=== PATIENT | female | born 1965 | race Caucasian/White ===

== ENCOUNTER 2024-06-18 12:47 | Inpatient (IN) | payer OTHER ==
[2024-06-18] MEDS ORDERED: HEPARIN SODIUM 1,000 UN/ML (10ML VL) IV PRN (13:10)
--- NOTE | 2024-06-18 13:17 | ED ---
General Adult HPI - General Chief complaint: Chest Pain Stated complaint: Chest pain Time Seen by Provider: 06/18/24 12:53 Source: patient, EMS, RN notes reviewed Mode of arrival: EMS Limitations: no limitations - History of Present Illness Initial comments: Patient is a 59-year-old female present to the emergency department with concerns with chest discomfort. Onset of symptoms was around 6 this morning. Discomfort feels like an ache. Discomfort was left arm and then went to the chest. Patient did have some mild sweating and mild shortness of breath. No nausea. Patient does have history of hypertension and is not on any medication for this. Patient did have a stent placed in 2014. Patient did go to [facility] and diagnosed with non-ST elevation myocardial infarction and transferred here for cardiac care. Patient is symptom-free at this time. - Related Data Previous Rx's Medication Instructions Recorded Aspirin 325 mg PO DAILY #30 tab 08/12/15 Atorvastatin [Lipitor] 80 mg PO HS #30 tab 08/12/15 Clopidogrel [Plavix] 75 mg PO DAILY #30 tab 08/12/15 Losartan [Cozaar] 50 mg PO DAILY #30 tab 08/12/15 Metoprolol Tartrate [Lopressor] 25 mg PO BID #60 tab 08/12/15 Nitroglycerin Sl Tabs [Nitrostat] 0.4 mg SUBLINGUAL Q5M PRN #25 tab 08/12/15 amLODIPine [Norvasc] 5 mg PO HS #30 tab 08/12/15 Allergies Allergy/AdvReac Type Severity Reaction Status Date / Time atorvastatin [From Lipitor] Allergy Rash/Hives Verified 06/18/24 12:57 meperidine HCl [From Demerol] AdvReac Hallucinati Verified 08/11/15 18:55 ons Review of Systems ROS Statement: Those systems with pertinent positive or pertinent negative responses have been documented in the HPI. ROS Other: All systems not noted in ROS Statement are negative. Constitutional: Denies: fever Eyes: Denies: eye pain ENT: Denies: ear pain Respiratory: Reports: as per HPI Cardiovascular: Reports: as per HPI, chest pain Musculoskeletal: Denies: back pain Past Medical History Past Medical History: Hyperlipidemia, Hypertension Additional Past Medical History / Comment(s): RECENT DX FOR HYPERTENSION AND HIGH CHOLESTEROL History of Any Multi-Drug Resistant Organisms: None Reported Past Surgical History: Tubal Ligation Additional Past Surgical History / Comment(s): 08-11-15 HEART CATH WITH STENT TO LAD. OTHER PAST MEDICAL HX: D/T DRIVE BY SHOOTING PT HAS PLATE IN RT WRIST AND SCREWS IN RT KNEE/FEMUR Past Anesthesia/Blood Transfusion Reactions: No Reported Reaction Additional Past Anesthesia/Blood Transfusion Reaction / Comment(s): CLAUSTERPHOBIA Past Psychological History: No Psychological Hx Reported Smoking Status: Current every day smoker Past Alcohol Use History: Occasional Past Drug Use History: None Reported - Past Family History Mother Additional Family Medical History / Comment(s): SLOW HEART RATE-PACEMAKER Father Additional Family Medical History / Comment(s): FROM LUNG DISEASE General Exam Limitations: no limitations General appearance: alert, in no apparent distress Head exam: Present: normocephalic Eye exam: Present: normal appearance Neck exam: Present: normal inspection Respiratory exam: Present: normal lung sounds bilaterally. Absent: chest wall tenderness Cardiovascular Exam: Present: regular rate, normal rhythm Expanded Peripheral pulses: 2+: Radial (R), Radial (L), Dorsalis Pedis (R), Dorsalis Pedis (L) GI/Abdominal exam: Present: soft. Absent: tenderness Extremities exam: Present: normal inspection. Absent: pedal edema, calf tenderness Neurological exam: Present: alert Psychiatric exam: Present: normal affect, normal mood Skin exam: Present: normal color Course Vital Signs 06/18/24 06/18/24 12:49 13:05 Temperature 98.2 F Pulse Rate 98 87 Respiratory 18 18 Rate Blood Pressure 192/120 192/120 O2 Sat by Pulse 98 98 Oximetry - Reevaluation(s) Reevaluation #1: 06/18/24 13:17 Cardiology and medicine have been paged 06/18/24 13:18 Case was discussed with Dr. Mancuso EKG Findings - EKG Results: EKG: interpreted by ERMD (Septal Q waves. Borderline ST change V2. T wave inversion leads V2 through V6.), sinus rhythm, normal axis Medical Decision Making - Medical Decision Making Was pt. sent in by a medical professional or institution (, PA, MAIL DELIVERER, urgent care, hospital, or residential...) When possible be specific @ -Patient was sent by [facility] Did you speak to anyone other than the patient for history (EMS, parent, family, police, friend...)? What history was obtained from this source @ -I did speak with transferring physician Did you review nursing and triage notes (agree or disagree)? Why? @ -I reviewed and agree with nursing and triage notes Were old charts reviewed (outside hosp., previous admission, EMS record, old EKG, old radiological studies, urgent care reports/EKG's, residential records)? Report findings @ -Previous admission reviewed. Chart review also reviewed from [facility]. Differential Diagnosis (chest pain, altered mental status, abdominal pain women, abdominal pain men, vaginal bleeding, weakness, fever, dyspnea, syncope, headache, dizziness, GI bleed, back pain, seizure, CVA, palpatations, mental health, musculoskeletal)? @ -Differential Chest Pain: Stable Angina, Unstable Angina, STEMI, NSTEMI Aortic Dissection, Pneumothorax, Musculoskeletal, Esophageal Spasm GERD, Cholecystitis, Pancreatitis, Zoster, this is not meant to be an all-inclusive list. EKG interpreted by me (3pts min.). @ -As above X-rays interpreted by me (1pt min.). @ -None done CT interpreted by me (1pt min.). @ -None done U/S interpreted by me (1pt. min.). @ -None done What testing was considered but not performed or refused? (CT, X-rays, U/S, labs)? Why? @ -None What meds were considered but not given or refused? Why? @ -None Did you discuss the management of the patient with other professionals (professionals i.e. , PA, MAIL DELIVERER, lab, RT, psych nurse, social media director, designer writer, teacher, airplane first officer, case folder)? Give summary @ -Case discussed with Dr. Mancuso who will evaluate patient. Case also discussed with Dr. Miller with [facility] who will admit covering hospital call Was smoking cessation discussed for >3mins.? @ -No Was critical care preformed (if so, how long)? @ -31 minutes critical care to Were there social determinants of health that impacted care today? How? (Homelessness, low income, unemployed, alcoholism, drug addiction, transportation, low edu. Level, literacy, decrease access to med. care, alf, rehab)? @ -No Was there de-escalation of care discussed even if they declined (Discuss DNR or withdrawal of care, Hospice)? DNR status @ -No What co-morbidities impacted this encounter? (DM, HTN, Smoking, COPD, CAD, Cancer, CVA, ARF, Chemo, Hep., AIDS, mental health diagnosis, sleep apnea, morbid obesity)? @ -None Was patient admitted / discharged? Hospital course, mention meds given and route, prescriptions, significant lab abnormalities, going to OR and other pertinent info. @ -Patient transferred for non-ST elevation [place]. Patient will be admitted with cardiac consult. Admission orders written. Heparin and nitroglycerin drips restarted. Beta-katie ordered. Undiagnosed new problem with uncertain prognosis? @ -No Drug Therapy requiring intensive monitoring for toxicity (Heparin, Nitro, Insulin, Cardizem)? @ -Heparin and nitroglycerin Were any procedures done? @ -No Diagnosis/symptom? @ -Non-ST elevation myocardial infarction Acute, or Chronic, or Acute on Chronic? @ -Acute Uncomplicated (without systemic symptoms) or Complicated (systemic symptoms)? @ -Default Side effects of treatment? @ -No Exacerbation, Progression, or Severe Exacerbation? @ -No Poses a threat to life or bodily function? How? (Chest pain, [place], [place], pneumonia, PE, COPD, DKA, ARF, appy, cholecystitis, CVA, Diverticulitis, Homicidal, Suicidal, threat to staff... and all critical care pts) @ -Threat to cardiac function Disposition Clinical Impression: Acute non-ST elevation myocardial infarction (NSTEMI) Disposition: ADMITTED IP TO THIS [facility] Condition: Serious Is patient prescribed a controlled substance at d/c from ED?: No Referrals: None,Stated [Primary Care Provider] - 1-2 days Time of Disposition: 13:27
[2024-06-18] MEDS ORDERED: NITROGLYCERIN SL TABS 0.4 MG TAB SUBLINGUAL PRN ×2 (13:22→13:39)
[2024-06-18] MEDS: HEPARIN SOD,PORK IN 0.45% NACL 25,000 UNIT in 0.45% NACL 1 250ML.BAG IV SCH (13:22)
[2024-06-18] MEDS: METOPROLOL TARTRATE 5 MG/5 ML VIAL IVP STA (13:27)
[2024-06-18] MEDS: NITROGLYCERIN-D5W PMX 50 MG in DEXTROSE/WATER 1 250ML.BAG IV ONE (13:39)
[2024-06-18] MEDS ORDERED: ALPRAZolam 0.25 MG TAB PO PRN (13:39)
[2024-06-18] MEDS ORDERED: ALPRAZolam 0.5 MG TAB PO PRN (13:39)
[2024-06-18] MEDS: ASPIRIN 325 MG TAB PO STA (13:46)
[2024-06-18] MEDS: ASPIRIN 81 MG PO STA (13:46)
[2024-06-18] MEDS: METOPROLOL TARTRATE 50 MG TAB PO SCH (13:46)
[2024-06-18] MEDS ORDERED: LIDOCAINE 1% INJ 10MG/ML (20 ML MDV) ONE (13:48)
[2024-06-18] MEDS ORDERED: VERAPAMIL 2.5 MG/ML 2 ML AMP ONE (13:48)
[2024-06-18] MEDS ORDERED: fentaNYL (PF) 50 MCG/ML 2 ML AMP ONE (13:49)
[2024-06-18] MEDS ORDERED: HEPARIN SODIUM 1,000 UN/ML (10ML VL) ONE (13:49)
[2024-06-18] MEDS: ATORVASTATIN 80 MG TAB PO STA (13:54)
--- NOTE | 2024-06-18 13:54 | P.CRDCN ---
History of Present Illness History of present illness: HISTORY OF PRESENT ILLNESS: This is a 59-year-old female with a past medical history significant for hypertension, hyperlipidemia, and coronary artery disease with previous stenting of the LAD. Patient does not follow with a flight surveyor. We have been asked to see the patient in consultation for non-STEMI. Patient examined at the bedside. Patient initially presented to [facility] with a chief complaint of chest pain. Patient states she woke up this morning and was having significant pain in her left arm that developed into pain in the middle of her chest. She also reports feeling short of breath. Patient was found to have elevated troponins. She was started on IV heparin and IV nitro and transferred to [facility] for further evaluation. Patient's blood pressure was found to be extremely elevated with a reading of 192/120. The patient states that she occasionally checks her blood pressure at home and her readings are usually elevated as well. She states that she is not taking any medications for the past several years. She states that she does not follow with a flight surveyor or primary care physician. She is a current cigarette smoker and smokes 1 pack of cigarettes every 2 to 3 days. DIAGNOSTICS: - EKG reveals sinus mechanism with deep T wave inversions in precordial leads - Chest xray performed at [facility] negative for acute process - Laboratory data: High-sensitivity troponin performed at outside facility 152 and 199. Creatinine 0.91. - Current home cardiac medications include none - Most recent echocardiogram obtained in July 2015 revealed ejection fraction 50 to 55% with mild TR and trace MR - Cardiac catheterization history: July 2015 revealing 70% mid LAD stenosis. EF 60%. Patient underwent stenting of the mid LAD with drug-eluting stent. REVIEW OF SYSTEMS: At the time of my exam: CONSTITUTIONAL: Denies fever or chills. HEENT: Denies blurred vision, vision changes, or eye pain. Denies hemoptysis CARDIOVASCULAR: Denies chest pain. Denies orthopnea. Denies PND. Denies palpitations RESPIRATORY: Denies shortness of breath. GASTROINTESTINAL: Denies abdominal pain. Denies nausea or vomiting. HEMATOLOGIC: Denies bleeding disorders. GENITOURINARY: Denies any blood in urine. SKIN: Denies pruitis. Denies rash. PHYSICAL EXAM: VITAL SIGNS: Reviewed. GENERAL: Well-developed in no acute distress. HEENT: Head is normocephalic. Pupils are equal, round. Sclerae anicteric. Mucous membranes of the mouth are moist. Neck supple. No JVD or thyromegaly LUNGS: Respirations even and unlabored. Lungs essentially clear to auscultation bilaterally. HEART: Regular rate and rhythm. S1 and S2 heard. ABDOMEN: Soft. Nondistended. Nontender. EXTREMITIES: Normal range of motion. No clubbing or cyanosis. Peripheral pulses intact. No lower extremity edema NEUROLOGIC: Awake and alert. Oriented x 3. ASSESSMENT: Non-STEMI Hypertensive emergency Coronary artery disease with previous stenting of the LAD Hyperlipidemia with allergy to statins Nicotine dependence Medication noncompliance PLAN: Obtain 2D echo to assess cardiac structure and function Continue IV heparin and IV nitro Add aspirin 81 mg daily Patient with allergy to statins. Begin Zetia 10 mg daily Add losartan-hydrochlorothiazide 50-25mg daily Continue metoprolol tartrate 50 mg twice a day started by ER Continue to monitor blood pressure Smoking cessation recommended. Patient to be referred to [place] quit line upon discharge Medication compliance reinforced with patient who verbalized understand and is agreeable Patient to undergo cardiac catheterization today with Dr. Kurtz Further recommendations pending patient course Nurse practitioner note has been reviewed by physician. Signing provider agrees with the documented findings, assessment, and plan of care documented by ENTRY MANAGER as a scribe. Past Medical History Past Medical History: Hyperlipidemia, Hypertension Additional Past Medical History / Comment(s): RECENT DX FOR HYPERTENSION AND HIGH CHOLESTEROL History of Any Multi-Drug Resistant Organisms: None Reported Past Surgical History: Tubal Ligation Additional Past Surgical History / Comment(s): 08-11-15 HEART CATH WITH STENT TO LAD. OTHER PAST MEDICAL HX: D/T DRIVE BY SHOOTING PT HAS PLATE IN RT WRIST AND SCREWS IN RT KNEE/FEMUR Past Anesthesia/Blood Transfusion Reactions: No Reported Reaction Additional Past Anesthesia/Blood Transfusion Reaction / Comment(s): CLAUSTERPHOBIA Past Psychological History: No Psychological Hx Reported Smoking Status: Current every day smoker Past Alcohol Use History: Occasional Past Drug Use History: None Reported - Past Family History Mother Additional Family Medical History / Comment(s): SLOW HEART RATE-PACEMAKER Father Additional Family Medical History / Comment(s): FROM LUNG DISEASE Medications and Allergies Home Medications Medication Instructions Recorded Confirmed Type No Known Home Medications 06/18/24 06/18/24 History Allergies Allergy/AdvReac Type Severity Reaction Status Date / Time atorvastatin [From Lipitor] Allergy Rash/Hives Verified 06/18/24 13:36 meperidine HCl [From Demerol] AdvReac Hallucinati Verified 06/18/24 13:36 ons Physical Exam Vitals: Vital Signs Temp Pulse Resp BP Pulse Ox 06/18/24 13:30 107 H 20 173/117 97 06/18/24 13:05 87 18 192/120 98 06/18/24 12:49 98.2 F 98 18 192/120 98 Intake and Output 06/17/24 06/18/24 06/18/24 22:59 06:59 14:59 Other: Weight 61.235 kg Results Current Medications Generic Name Dose Route Start Last Admin Trade Name Freq PRN Reason Stop Dose Admin Aspirin 325 mg 06/19/24 09:00 Aspirin 325 Mg Tab PO DAILY RICK Heparin Sodium (Porcine) 0 unit 06/18/24 13:10 Heparin Sodium 1,000 Un/Ml (10ml Vl) IV PER PROTOCOL PRN Low PTT Protocol Heparin Sodium/Sodium Chloride 250 mls @ 7.348 mls/hr 06/18/24 13:15 06/18/24 13:22 25,000 unit/ Sodium Chloride IV 12 units/kg/hr .Q24H RICK 7.348 mls/hr Administration Protocol 12 UNITS/KG/HR Nitroglycerin/Dextrose 50 mg/ 250 mls @ 1.5 mls/hr 06/18/24 13:10 IV Solution IV 06/19/24 13:09 .Q24H ONE Protocol 5 MCG/MIN Metoprolol Tartrate 50 mg 06/18/24 13:30 Metoprolol Tartrate 50 Mg Tab PO BID RICK Nitroglycerin 0.4 mg 06/18/24 13:22 Nitroglycerin Sl Tabs 0.4 Mg Tab SUBLINGUAL Q5M PRN Chest Pain Intake and Output 06/17/24 06/18/24 06/18/24 22:59 06:59 14:59 Other: Weight 61.235 kg Patient Weight 06/19/24 06:59 Weight 61.235 kg
[2024-06-18] MEDS: LOSARTAN 50 MG TAB PO SCH (13:55)
[2024-06-18] MEDS: MIDAZOLAM 2 MG/2 ML VIAL IVP ONE (14:15)
[2024-06-18] MEDS: LIDOCAINE 1% INJ 10MG/ML (20 ML MDV) SQ ONE (14:15)
[2024-06-18] MEDS: fentaNYL (PF) 50 MCG/1 ML VIAL IVP ONE ×3 (14:18→14:39)
[2024-06-18] MEDS ORDERED: TICAGRELOR 90 MG TAB ONE (14:25)
[2024-06-18] MEDS: TICAGRELOR 90 MG TAB PO ONE (14:25)
[2024-06-18] MEDS ORDERED: niCARdipine 25 MG/10 ML VIAL ONE (14:29)
[2024-06-18] MEDS: HEPARIN SODIUM 1,000 UN/ML (10ML VL) IVP ONE (14:30)
[2024-06-18] MEDS: SODIUM CHLORIDE 0.9% 250 ML IV ONE (14:40)
[2024-06-18] MEDS: HEPARIN SODIUM,PORCINE (1 ML) 2,500 UNIT in SODIUM CHLORIDE 0.9% 250 ML IRRIGATION ONE (14:40)
[2024-06-18] MEDS: HEPARIN SODIUM,PORCINE 10,000 UNIT in SODIUM CHLORIDE 0.9% 1,000 ML IRRIGATION ONE (14:40)
[2024-06-18] MEDS: IOPAMIDOL-300 100ML BTL INTRATHECA ONE (14:46)
[2024-06-18] MEDS ORDERED: ATROPINE SULFATE 0.1 MG/ML 10ML SYRINGE IV PRN (14:49)
[2024-06-18] MEDS ORDERED: RX INFO: IV CONTRAST WAS GIVEN 1 EACH MISC MISCELLANE PRN (14:49)
[2024-06-18] MEDS ORDERED: ZOLPIDEM 5 MG TAB PO PRN (14:49)
--- NOTE | 2024-06-18 16:13 | P.HPIM ---
History of Present Illness H&P Date: 06/18/24 History of Present Illness: Patient is a 59-year-old female transferred patient from [facility] with a past medical history of CAD with stent (2014), hyperlipidemia, hypertension presents to the ED with chest pain. She explains while at work this morning she felt discomfort in her left arm which then radiated to her chest. She felt numbness and tingling in her left arm as well. Admits to diaphoresis and shortness of breath. Denies nausea, vomiting. Has extensive tobacco use history. Does not take any home medications. She went to [facility] to be assessed for chest pain. Labs and other evaluation showed that she had a NSTEMI and was transferred here for cardiac care. She was seen status post cardiac catheterization. She presents with no symptoms. She is being admitted for further monitoring status post cardiac catheterization. Pertinent positives and negatives as discussed above, a complete review of systems was performed and all other systems are negative. Vitals: Signs Reviewed Physical Exam: General: nontoxic, no distress, appears at stated age Derm: warm, dry, intact Head: atraumatic, normocephalic, symmetric Eyes: EOMI, no lid lag, anicteric sclera Mouth: no lip lesion, mucus membranes moist Cardiovascular: S1 S2 reg, no murmur, rubs, or gallops Lungs: CTA bilateral, no rhonchi, no rales, no accessory muscle use Abdominal: soft, non-tender to palpataion, no appreciable organomegaly Extremities: no gross muscle atrophy, no edema, no contractures Neuro: Alert, Oriented, CNII-XII grossly intact, gait normal Psych: well appearing, appropriate affect Assessment and Plan: 59 year-old female with past medical history of hypertension, hyperlipidemia, CAD with stent presents with chest pain status post cardiac catheterization secondary to NSTEMI. Active: NSTEMI Hypertension Hyperlipidemia History of CAD with stent in LAD Status post cardiac catheterization On aspirin 81 p.o. daily Oxygen nasal cannula 2 L Continue IV heparin Continue IV nitro Losartan-Hydrochlorothiazide 50-25 mg p.o. daily Metoprolol tartrate day 50 mg p.o. twice daily Nitroglycerin sublingual tabs as needed for chest pain Atropine sulfate 0.5 mg IV once as needed for symptomatic bradycardia Ticagrelor 90 mg p.o. twice daily Patient is allergic to statins. Begin Zetia 10 mg daily Echo Doppler ordered A1c, lipid panel, coagulation studies, troponins, CMP and BMP pending. Repeat EKG tomorrow. Telemetry monitoring Monitor blood pressure Cardiology following. Note reviewed. Rehab consult, dietitian consulted. Chronic: Anxiety Xanax 0.25 mg p.o. every 6 hours for mild to moderate anxiety Insomnia Ambien 5 mg p.o. at bedtime as needed Nicotine dependence Medication noncompliance Educated on smoking cessation and medical noncompliance. F: NS @ 75cc/hr E: Replete as needed N: Heart healthy diet A: Ambulatory GI PPx: Maalox DVT ppx: IV heparin Code status: Full Anticipated discharge place: Home Anticipated discharge time: Likely 24-48 hours I have seen and evaluated the patient today. Discussed with the resident and agree with the residents subjective and objective as documented in the resident's note. The assessment and plan was discussed and outlined as below. Patient underwent LAD stent. Chest pain free. No complaints. Currently on ASA, Lipitor, Brilinta, Metoprolol. She does not take any medications at home and is a heavy smoker. NSTEMI: Status post cath and LAD stent. ASA 81 mg PO QD. Lipitor 80 mg PO QD. Metoprolol 50 mg PO BID. Brilinta 90 mg PO BID. Echo pending. Telemetry monitoring. Cardiology on board. Hypertensive emergency: Metoprolol as above. Losartan 50 mg PO QD. HCTZ 25 mg PO QD. Monitor vitals and adjust medications if necessary. Nicotine abuse: Advised to quit. Past Medical History Past Medical History: Hyperlipidemia, Hypertension Additional Past Medical History / Comment(s): RECENT DX FOR HYPERTENSION AND HIGH CHOLESTEROL History of Any Multi-Drug Resistant Organisms: None Reported Past Surgical History: Tubal Ligation Additional Past Surgical History / Comment(s): 08-11-15 HEART CATH WITH STENT TO LAD. OTHER PAST MEDICAL HX: D/T DRIVE BY SHOOTING PT HAS PLATE IN RT WRIST AND SCREWS IN RT KNEE/FEMUR Past Anesthesia/Blood Transfusion Reactions: No Reported Reaction Additional Past Anesthesia/Blood Transfusion Reaction / Comment(s): CLAUSTERPHOBIA Past Psychological History: No Psychological Hx Reported Smoking Status: Current every day smoker Past Alcohol Use History: Occasional Past Drug Use History: None Reported - Past Family History Mother Additional Family Medical History / Comment(s): SLOW HEART RATE-PACEMAKER Father Additional Family Medical History / Comment(s): FROM LUNG DISEASE Medications and Allergies Home Medications Medication Instructions Recorded Confirmed Type No Known Home Medications 06/18/24 06/18/24 History Allergies Allergy/AdvReac Type Severity Reaction Status Date / Time atorvastatin [From Lipitor] Allergy Rash/Hives Verified 06/18/24 13:36 meperidine HCl [From Demerol] AdvReac Hallucinati Verified 06/18/24 13:36 ons Physical Exam Vitals: Vital Signs Temp Pulse Resp BP Pulse Ox 06/18/24 13:48 82 18 172/118 97 06/18/24 13:30 107 H 20 173/117 97 06/18/24 13:05 87 18 192/120 98 06/18/24 12:49 98.2 F 98 18 192/120 98 Intake and Output 06/18/24 06/18/24 06/18/24 06:59 14:59 22:59 Intake Total 40 Balance 40 Intake: IV 40 Other: Weight 61.235 kg
[2024-06-18] MEDS: hydroCHLOROthiazide 25 MG TAB PO SCH (16:14)
[2024-06-18] MEDS: SODIUM CHLORIDE 0.9% 1,000 ML in EMPTY BAG 1 BAG IV SCH (16:15)
[2024-06-18] MEDS: LABETALOL 5 MG/ML VIAL MDV IVP STA (18:29)
[2024-06-18] MEDS: MAG HYDROX/AL HYDROX/SIMETH 30 ML CUP PO PRN (18:33)
[2024-06-18] MEDS: NITROGLYCERIN-D5W PMX 50 MG in DEXTROSE/WATER 1 250ML.BAG IV SCH ×2 (18:56→21:28)
[2024-06-18] MEDS: hydrALAZINE HCL 20 MG/ML 1 ML VIAL IVP STA (19:55)
[2024-06-18] MEDS: ONDANSETRON 4 MG/2 ML VIAL IVP PRN (19:56)
[2024-06-18 21:49] LABS: Glucose,Whole Blood 127 mg/dL (70-110)
[2024-06-18] MEDS ORDERED: NALOXONE 0.4 MG/ML 1 ML VIAL IV PRN (21:59)
[2024-06-18] MEDS: METOCLOPRAMIDE 5 MG/ML 2 ML VIAL IVP PRN (22:20)
[2024-06-18 22:35] LABS: Basophils % (A) 0 %; Eosinophils # (A) 0.2 k/uL (0-0.7); Eosinophils % (A) 2 %; HCT 48.1 % (34.0-46.0); Lymphocytes # (A) 1.7 k/uL (1.0-4.8); Lymphocytes % (A) 12 %; MCH 31.6 pg (25.0-35.0); MCHC 33.3 g/dL (31.0-37.0); MCV 94.9 fL (80.0-100.0); Monocytes # (A) 0.7 k/uL (0-1.0); Monocytes % (A) 5 %; Neutrophils # (A) 11.3 k/uL (1.3-7.7); Neutrophils % (A) 80 %; Platelet Count 324 k/uL (150-450); RBC 5.07 m/uL (3.80-5.40); RDW 13.2 % (11.5-15.5)
[2024-06-18] MEDS: CLEVIDIPINE BUTYRATE 25 MG in EMPTY BAG 1 BAG IV SCH (22:48)
[2024-06-18 22:49] LABS: African American GFR (CKD) >90 (>60 ml/min/1.73 sqM); Blood Urea Nitrogen 12 mg/dL (7-17); Carbon Dioxide 20 mmol/L (22-30); Non-African American GFR(CKD) >90 (>60 ml/min/1.73 sqM)
[2024-06-18] MEDS: TICAGRELOR 90 MG TAB PO SCH (23:10)
[2024-06-18] MEDS: SPIRONOLACTONE 25 MG TAB PO SCH (23:10)
[2024-06-18 23:23] LABS: Anion Gap 8 mmol/L; Calcium 9.6 mg/dL (8.4-10.2); Chloride 104 mmol/L (98-107); Glucose 135 mg/dL (74-99); Magnesium 1.9 mg/dL (1.6-2.3); Potassium 3.8 mmol/L (3.5-5.1); Sodium 132 mmol/L (137-145)
[2024-06-19] MEDS ORDERED: Magnesium Replacement Protocol 1 EACH MISC MISCELLANE PRN (03:40)
[2024-06-19] MEDS ORDERED: Potassium Replacement Protocol 1 EACH MISC MISCELLANE PRN (03:40)
[2024-06-19] MEDS: MAGNESIUM SULFATE-D5W PMX 1 GM in DEXTROSE/WATER 1 100ML.BAG IVPB ONE (03:49)
[2024-06-19] MEDS: POTASSIUM CHLORIDE ER 20 MEQ TAB.ER PO SCH ×2 (03:49→10:01)
[2024-06-19 05:08] LABS: Basophils % (A) 0 %; Eosinophils # (A) 0.1 k/uL (0-0.7); Eosinophils % (A) 1 %; HCT 49.4 % (34.0-46.0); HGB 16.1 gm/dL (11.4-16.0); Lymphocytes # (A) 2.1 k/uL (1.0-4.8); Lymphocytes % (A) 20 %; MCH 30.9 pg (25.0-35.0); MCHC 32.5 g/dL (31.0-37.0); MCV 95.1 fL (80.0-100.0); Mean Platelet Volume 7.5; Monocytes # (A) 0.6 k/uL (0-1.0); Monocytes % (A) 6 %; Neutrophils # (A) 7.7 k/uL (1.3-7.7); Neutrophils % (A) 72 %; Platelet Count 312 k/uL (150-450); RDW 12.7 % (11.5-15.5); WBC 10.8 k/uL (3.8-10.6)
[2024-06-19 05:24] LABS: African American GFR (CKD) >90 (>60 ml/min/1.73 sqM); Anion Gap 9 mmol/L; Blood Urea Nitrogen 10 mg/dL (7-17); Calcium 9.8 mg/dL (8.4-10.2); Carbon Dioxide 21 mmol/L (22-30); Chloride 107 mmol/L (98-107); Glucose 116 mg/dL (74-99); Non-African American GFR(CKD) >90 (>60 ml/min/1.73 sqM); Potassium 3.9 mmol/L (3.5-5.1); Sodium 137 mmol/L (137-145)
[2024-06-19 05:35] LABS: Prothrombin Time 10.6 sec (10.0-12.5)
[2024-06-19] MEDS ORDERED: HEPARIN SODIUM,PORCINE 10,000 UNIT in SODIUM CHLORIDE 0.9% 1,000 ML IRRIGATION PRN (07:00)
[2024-06-19] MEDS ORDERED: HEPARIN SODIUM,PORCINE (1 ML) 2,500 UNIT in SODIUM CHLORIDE 0.9% 250 ML IRRIGATION PRN (07:00)
[2024-06-19] MEDS: ENOXAPARIN 40 MG/0.4 ML SYRINGE SQ SCH (08:31)
[2024-06-19] MEDS: ASPIRIN 81 MG PO SCH (08:31)
--- NOTE | 2024-06-19 08:58 | P.PN ---
Subjective Progress Note Date: 06/19/24 This is a 59-year-old female patient with a past medical history significant for CAD with prior stenting of the LAD as well as hypertension and dyslipidemia and smoking who was admitted to the hospital with acute non-ST ovation myocardial infarction and underwent a heart catheterization which revealed critical LAD disease which was stented. The echo still pending. June 19, 2024 The patient was seen and evaluated this morning. She is asymptomatic and hemodynamically stable. The pressure is better and currently she is off clevidipine. The pressure consistent with stage II hypertension and going to increase the dose of losartan to 100 mg p.o. daily and continue rest of the current medical regimen including dual antiplatelet therapy along with high intensity statin. The examination is remarkable for regular rhythm with a soft systolic murmur and clear breathing sounds bilaterally and no carotid bruit and no edema was noted Assessment Acute non-ST ovation myocardial infarction Status post PCI of the LAD Multiple comorbid conditions including hypertension and dyslipidemia and smoking Plan Continue the current medical regimen Increase dose of losartan Follow-up on the echocardiogram The patient can be transferred to [facility]. Objective - Vital Signs Vital signs: Vital Signs Temp 96.4 F L 06/19/24 08:00 Pulse 73 06/19/24 08:00 Resp 19 06/19/24 08:00 BP 133/95 06/19/24 08:00 Pulse Ox 96 06/19/24 08:00 FiO2 Intake & Output 06/18/24 06/19/24 06/19/24 18:59 06:59 18:59 Intake Total 580 641.958 120.4 Output Total 2300 800 Balance 580 -1658.042 -679.6 Weight 61.235 kg 65.7 kg Intake: IV 40 600 95 Sodium Chloride 0.9% 1, 600 95 000 ml In Empty Bag 1 bag @ 75 mls/hr IV .[id number] RICK Rx#:[id number] Intake, IV Titration 41.958 25.4 Amount Clevidipine Butyrate 25 37.433 25.4 mg In Empty Bag 1 bag @ 1 MG/HR 2 mls/hr IV .Q24H RICK Rx#:[id number] Nitroglycerin-D5w Pmx 50 4.525 mg In Dextrose/Water 1 250ml.bag @ 5 MCG/MIN 1.5 mls/hr IV .Q24H RICK Rx#: [id number] Oral 540 Output: Urine 2300 800 Other: Voiding Method Toilet Toilet # Voids 1 - Labs CBC & Chem 7: 06/19/24 04:54 06/19/24 04:54 Labs: Abnormal Lab Results - Last 24 Hours (Table) 06/18/24 06/18/24 06/18/24 Range/Units 17:04 20:22 21:48 WBC (3.8-10.6) k/uL Hgb (11.4-16.0) gm/dL Hct (34.0-46.0) % Neutrophils # (1.3-7.7) k/uL Sodium (137-145) mmol/L Carbon Dioxide (22-30) mmol/L Glucose (74-99) mg/dL POC Glucose (mg/dL) 127 H (70-110) mg/dL Troponin I 2.340 H* 1.590 H* (0.000-0.034) ng/mL 06/18/24 06/18/24 06/19/24 Range/Units 22:25 22:25 04:54 WBC 14.0 H 10.8 H (3.8-10.6) k/uL Hgb 16.1 H (11.4-16.0) gm/dL Hct 48.1 H 49.4 H (34.0-46.0) % Neutrophils # 11.3 H (1.3-7.7) k/uL Sodium 132 L (137-145) mmol/L Carbon Dioxide 20 L (22-30) mmol/L Glucose 135 H (74-99) mg/dL POC Glucose (mg/dL) (70-110) mg/dL Troponin I (0.000-0.034) ng/mL 06/19/24 Range/Units 04:54 WBC (3.8-10.6) k/uL Hgb (11.4-16.0) gm/dL Hct (34.0-46.0) % Neutrophils # (1.3-7.7) k/uL Sodium (137-145) mmol/L Carbon Dioxide 21 L (22-30) mmol/L Glucose 116 H (74-99) mg/dL POC Glucose (mg/dL) (70-110) mg/dL Troponin I (0.000-0.034) ng/mL
[2024-06-19] MEDS ORDERED: ASPIRIN 325 MG TAB PO SCH (09:00)
[2024-06-19] MEDS: LOSARTAN 50 MG TAB PO STA (10:01)
[2024-06-19 10:28] LABS: Chol/HDL Ratio 3.29 Ratio; LDL Cholesterol,Calculated 145.6 mg/dL (0.0-131.0)
--- NOTE | 2024-06-19 11:04 | P.PN ---
Subjective Progress Note Date: 06/19/24 Patient is a 59 year old F with PMH of HTN, HLD, CAD with previous LAD stent in 2014 presented to the ED at [facility] as a transfer from [facility] for chest pain. She reports heavy history of smoking and not taking any medications. High-sensitivity troponin performed at [facility] was 152 and 199. EKG reveals sinus rhythm with deep T wave inversions in V2-V6. Of note, underwent cardiac cath at this hospital in 07/2015 revealing 70% mid LAD stenosis status post JORDY to the mid-LAD. Echo done at that time showed EF 50-55%. She was noted to be extremely hypertensive and was started on a heparin infusion for NSTEMI and nitro drip and transferred to [facility] for further evaluati on. In the ED here, her vitals were BP 192/120, HR 98, T 98.2F, RR 18, 98% on RA. She was given Metoprolol 5 mg IV in the ED and evaluated by Cardiology. She underwent cardiac cath on 06/18 and underwent stenting to the LAD. Post cath, her BP remained elevated with SBP in the 200s. She was given 10 mg IV Labetolol and eventually required a Clevedipine drip hence transferred to the ICU. 06/19 Patient was seen and examined. No complaints. Most recent BP 134/94 HR 78. Currently on Clevedipine drip running at 3 mg/hr. CBC, Coag panel, CMP done today significant for WBC 10.8, Hg 16.1, Hct 49.4, bicarb 21, glu 116. Troponins post cath trending down 2.34 and 1.59. A1c 5.6. Lipid panel T. Chol 236, LDL 145.6. General: non toxic, no distress, appears at stated age Derm: warm, dry Head: atraumatic, normocephalic, symmetric Eyes: EOMI, no lid lag, anicteric sclera Mouth: no lip lesion, mucus membranes moist Cardiovascular: S1S2 reg, no murmur Lungs: CTA bilateral, no rhonchi, no rales , no accessory muscle use Ext: no gross muscle atrophy, no edema, no contractures Neuro: no focal neuro deficits Psych: Alert, oriented, appropriate affect Based on my assessment of this patient, this patient meets a high complexity level of care. NSTEMI: Status post cath and LAD stent. ASA 81 mg PO QD. Metoprolol 50 mg PO BID. Brilinta 90 mg PO BID. Echo pending. Telemetry monitoring. Cardiology on board. Hypertensive emergency: Clevedipine drip at 3 mg/hr. Metoprolol as above. Losartan increased to 200 mg PO QD. HCTZ 25 mg PO QD. Aldactone 25 mg PO QD. Monitor vitals and adjust medications if necessary. Dyslipidemia: Allergic to statin? Polycythemia likely related to history of smoking Leukocytosis mildly elevated and trending down, likely reactive with no signs of active infection. Nicotine abuse: Advised to quit. CODE STATUS: FULL CODE DVT Prophylaxis: Lovenox SQ GI Prophylaxis: Designated medical POA if patient is not able to make medical decisions for themselves: I have reviewed the following systems security consultant notes: Cardiology, Cath note. I have reviewed the results of the following tests: CBC, CMP, Coag panel, Troponin x 2 I have ordered the following tests: Echo is pending. I have discussed the care of this patient with the following independent historian: I have independently interpreted the following test below: I have discussed the management of this patient with the following physician: This patient has a high risk of morbidity due to the following reasons: Patient requires IV antihypertensive medication for BP control which requires intensive monitoring of hemodynamics. Objective - Vital Signs Vital signs: Vital Signs Temp 98.2 F 06/19/24 04:00 Pulse 78 06/19/24 07:00 Resp 16 06/19/24 07:00 BP 134/94 06/19/24 07:00 Pulse Ox 96 06/19/24 07:00 FiO2 Intake & Output 06/18/24 06/19/24 06/19/24 18:59 06:59 18:59 Intake Total 580 491.958 Output Total 2300 Balance 580 -1808.042 Weight 61.235 kg 65.7 kg Intake: IV 40 450 Sodium Chloride 0.9% 1, 450 000 ml In Empty Bag 1 bag @ 75 mls/hr IV .[id number] [facility] Rx#:[id number] Intake, IV Titration 41.958 Amount Clevidipine Butyrate 25 37.433 mg In Empty Bag 1 bag @ 1 MG/HR 2 mls/hr IV .Q24H [facility] Rx#:[id number] Nitroglycerin-D5w Pmx 50 4.525 mg In Dextrose/Water 1 250ml.bag @ 5 MCG/MIN 1.5 mls/hr IV .Q24H [facility] Rx#: [id number] Oral 540 Output: Urine 2300 Other: Voiding Method Toilet - Labs CBC & Chem 7: 06/19/24 04:54 06/19/24 04:54 Labs: Abnormal Lab Results - Last 24 Hours (Table) 06/18/24 06/18/24 06/18/24 Range/Units 17:04 20:22 21:48 WBC (3.8-10.6) k/uL Hgb (11.4-16.0) gm/dL Hct (34.0-46.0) % Neutrophils # (1.3-7.7) k/uL Sodium (137-145) mmol/L Carbon Dioxide (22-30) mmol/L Glucose (74-99) mg/dL POC Glucose (mg/dL) 127 H (70-110) mg/dL Troponin I 2.340 H* 1.590 H* (0.000-0.034) ng/mL 06/18/24 06/18/24 06/19/24 Range/Units 22:25 22:25 04:54 WBC 14.0 H 10.8 H (3.8-10.6) k/uL Hgb 16.1 H (11.4-16.0) gm/dL Hct 48.1 H 49.4 H (34.0-46.0) % Neutrophils # 11.3 H (1.3-7.7) k/uL Sodium 132 L (137-145) mmol/L Carbon Dioxide 20 L (22-30) mmol/L Glucose 135 H (74-99) mg/dL POC Glucose (mg/dL) (70-110) mg/dL Troponin I (0.000-0.034) ng/mL 06/19/24 Range/Units 04:54 WBC (3.8-10.6) k/uL Hgb (11.4-16.0) gm/dL Hct (34.0-46.0) % Neutrophils # (1.3-7.7) k/uL Sodium (137-145) mmol/L Carbon Dioxide 21 L (22-30) mmol/L Glucose 116 H (74-99) mg/dL POC Glucose (mg/dL) (70-110) mg/dL Troponin I (0.000-0.034) ng/mL
[2024-06-19 12:01] VITALS: BMI 22.6
--- NOTE | 2024-06-19 13:38 | CA ---
Transthoracic Echo Report Name: Carmen Cole Age: 59 Gender: F : 1965 Exam Date: 06/19/2024 08:12 Exam Location: [facility] Echo Ht (in): 67 Wt (lb): 135 Ordering Physician: Maria C Burris Attending/Referring Phys: [id number], [place] Mandrel Press Hand Christine Holbrook RDCS Procedure CPT: Indications: nstemi Cardiac Hx: stents Technical Quality: Fair Contrast 1: Total Dose (mL): Contrast 2: Total Dose (mL): MEASUREMENTS (Male / Female) Normal Values 2D ECHO LV Diastolic Diameter PLAX 4.8 cm 4.2 - 5.9 / 3.9 - 5.3 cm LV Systolic Diameter PLAX 3.6 cm IVS Diastolic Thickness 1.4 cm 0.6 - 1.0 / 0.6 - 0.9 cm LVPW Diastolic Thickness 1.3 cm 0.6 - 1.0 / 0.6 - 0.9 cm LV Relative Wall Thickness 0.6 RV Internal Dim ED PLAX 2.9 cm LA Systolic Diameter LX 3.4 cm 3.0 - 4.0 / 2.7 - 3.8 cm LV Diastolic Volume MOD BP 60.9 cm??? 67 - 155 / 56 - 104 cm??? LV Systolic Volume MOD BP 33.5 cm??? - 58 / 19 - 49 cm??? LV Ejection Fraction MOD BP 44.9 % >= 55 % LV Cardiac Index MOD BP 1543.2 cm???/min???m??? LV Diastolic Volume MOD 4C 54.8 cm??? LV Systolic Volume MOD 4C 28.6 cm??? LV Ejection Fraction MOD 4C 47.7 % LV Cardiac Index MOD 4C 1477.1 cm???/min???m??? LV Diastolic Length 4C 6.0 cm LV Systolic Length 4C 6.0 cm LV Diastolic Volume MOD 2C 67.0 cm??? LV Systolic Volume MOD 2C 38.5 cm??? LV Ejection Fraction MOD 2C 42.6 % LV Cardiac Index MOD 2C 1609.8 cm???/min???m??? LV Diastolic Length 2C 6.1 cm LV Systolic Length 2C 6.3 cm LA Volume 30.7 cm??? 18 - 58 / 22 - 52 cm??? LA Volume Index 18.1 cm???/m??? 16 - 28 cm???/m??? DOPPLER AV Peak Velocity 107.6 cm/s AV Peak Gradient 4.6 mmHg MV Area PHT 3.8 cm??? Mitral E Point Velocity 36.6 cm/s Mitral A Point Velocity 69.8 cm/s Mitral E to A Ratio 0.5 MV Deceleration Time 198.5 ms FINDINGS Left Ventricle Left ventricular ejection fraction is estimated at 40-45 %. Left ventricular cavity size normal. Moderate concentric left ventricular hypertrophy. Apical anterior wall hypokinesis, apical inferior hypokinesis, apical septum hypokinesis Right Ventricle Normal right ventricular size. Unable to estimate the right ventricular systolic pressure. Right Atrium Normal right atrial size. No right atrial thrombus or mass seen. Left Atrium Normal left atrial size. No left atrial thrombus or mass present. Mitral Valve Structurally normal mitral valve. No mitral stenosis, regurgitation or prolapse. Aortic Valve Trileaflet aortic valve. No aortic valve stenosis or regurgitation. Tricuspid Valve Structurally normal tricuspid valve. No tricuspid stenosis, regurgitation or prolapse. Pulmonic Valve Pulmonic valve not well visualized. Pericardium No pericardial effusion. No pleural effusion. Aorta Normal size aortic root and proximal ascending aorta. CONCLUSIONS Mildly impaired LV function with EF between 40 to 45% with mid ventricle and apical hypokinesia Previewed by: Dr. Kennedy Kurtz MD (Electronically Signed) Final Date: 19 June 2024 13:37
--- NOTE | 2024-06-19 13:52 | P.PCN ---
Date of Procedure: 06/18/24 Operative Findings: CARDIAC CATHETERIZATION AND PERCUTANEOUS CORONARY INTERVENTION PERFORMING PHYSICIAN: Kennedy Kurtz MD, RPVI PROCEDURE PERFORMED: 1. Selective right and left coronary angiogram 2. Left heart catheterization 3. Successful stenting of the mid LAD using 3.25 x 15 mm Xience JORDY with an excellent angiographic results with adjunctive use of IVUS 4. Ultrasound guided access of the right radial artery INDICATION: Acute coronary syndrome COMPLICATION: None APPROACH: Right radial art LEVEL OF SEDATION: Moderate with the sedation time off 38 minutes PROCEDURE DESCRIPTION: The after obtaining informed consent the patient was brought to the cardiac Rn Midwife. The right radial artery was cannulated using micropuncture technique under ultrasound guidance the micropuncture wire passed easily then I placed a 6 Bangladeshi 11 cm sheath. After that anticoagulation was initiated using heparin with continuous ACT monitoring. Selective right and left coronary angiogram performed using JR4 and JL 3.5 catheters. Left heart catheterization was performed as well and the procedure after that was completed with no complication as a diagnostic procedure. Subsequently I decided to intervene on the LAD. Anticoagulation continued using heparin with ACT monitoring. Subsequently I did engage the left main using JL 3.5 guiding catheter. I did wired the LAD using a run-through wire. Intravascular ultrasound was performed and showed a diameter around 3 to 3.5 mm. I did predilated using 2.5 mm balloon before I deployed 3.25 x 15 mm stent where the stent was positioned under fluoroscopy guidance and deployed and subsequently postdilated using 3.0 noncompliant balloon with final angiogram showing excellent angiographic results and the procedure was completed with no complication SELECTIVE CORONARY ANGIOGRAM: The right coronary artery: Large-caliber vessel and a dominant vessel and appears to be angiographically Left main: Is angiographically normal. Bifurcates into an LCx and LAD The left circumflex: The large-caliber vessel nondominant vessel with mild disease on The left anterior descending artery: Large-caliber vessel stented in the midportion and there is a critical disease just distal to the stented segment appears to be in the range of 99.9% HEMODYNAMICS: The LVEDP was 18 mmHg with no significant gradient across aortic valve CONCLUSION: Critical disease involving the mid LAD. I performed successful PCI as described above POSTPROCEDURE MANAGEMENT: 1. Dual antiplatelet therapy using aspirin and present for 12 month 2. Aggressive cholesterol control 3. Follow-up with the patient
[2024-06-20 05:44] LABS: Basophils % (A) 0 %; Eosinophils # (A) 0.1 k/uL (0-0.7); Eosinophils % (A) 1 %; HGB 17.9 gm/dL (11.4-16.0); Lymphocytes # (A) 2.2 k/uL (1.0-4.8); Lymphocytes % (A) 21 %; MCH 31.6 pg (25.0-35.0); MCHC 33.1 g/dL (31.0-37.0); MCV 95.4 fL (80.0-100.0); Mean Platelet Volume 7.8; Monocytes # (A) 0.8 k/uL (0-1.0); Monocytes % (A) 8 %; Neutrophils # (A) 7.1 k/uL (1.3-7.7); Neutrophils % (A) 67 %; Platelet Count 330 k/uL (150-450); RBC 5.66 m/uL (3.80-5.40); RDW 12.8 % (11.5-15.5); WBC 10.5 k/uL (3.8-10.6)
[2024-06-20 06:00] LABS: African American GFR (CKD) 84 (>60 ml/min/1.73 sqM); Anion Gap 10 mmol/L; Blood Urea Nitrogen 27 mg/dL (7-17); Calcium 10.2 mg/dL (8.4-10.2); Carbon Dioxide 16 mmol/L (22-30); Chloride 111 mmol/L (98-107); Glucose 90 mg/dL (74-99); Non-African American GFR(CKD) 73 (>60 ml/min/1.73 sqM); Potassium 4.9 mmol/L (3.5-5.1); Sodium 137 mmol/L (137-145)
[2024-06-20] MEDS ORDERED: LOSARTAN 50 MG TAB PO SCH (09:00)
[2024-06-20] MEDS: LOSARTAN 50 MG TAB PO SCH (09:20)
[2024-06-20] MEDS: FAMOTIDINE 20 MG TAB PO SCH (10:24)
--- NOTE | 2024-06-20 11:47 | P.PN ---
Subjective Progress Note Date: 06/20/24 This is a 59-year-old female patient with a past medical history significant for CAD with prior stenting of the LAD as well as hypertension and dyslipidemia and smoking who was admitted to the hospital with acute non-ST ovation myocardial infarction and underwent a heart catheterization which revealed critical LAD disease which was stented. The echo still pending. June 19, 2024 The patient was seen and evaluated this morning. She is asymptomatic and hemodynamically stable. The pressure is better and currently she is off clevidipine. The pressure consistent with stage II hypertension and going to increase the dose of losartan to 100 mg p.o. daily and continue rest of the current medical regimen including dual antiplatelet therapy along with high intensity statin. The examination is remarkable for regular rhythm with a soft systolic murmur and clear breathing sounds bilaterally and no carotid bruit and no edema was noted June 20, 2024 The patient was seen and evaluated this morning which she is asymptomatic and hemodynamically stable besides soft blood pressure and with that being said we will going to decrease the dose of losartan to 50 mg p.o. daily. Otherwise she remains on dual antiplatelet therapy along with high intensity statin along with the cardiomyopathy medication with the ejection fraction is 40 to 45%. The patient would like to be discharged home. The examination is remarkable for regular rhythm with clear breathing sounds bilaterally. From the cardiovascular standpoint of view that the patient can be discharged home in the next 12 to 24 hours. Assessment Acute non-ST ovation myocardial infarction Status post PCI of the LAD Multiple comorbid conditions including hypertension and dyslipidemia and smoking Plan Continue the current medical regimen Possible discharge in next 12 to 24 hours Objective - Vital Signs Vital signs: Vital Signs Temp 98.7 F 06/20/24 08:00 Pulse 80 06/20/24 10:26 Resp 16 06/20/24 08:00 BP 119/82 06/20/24 10:26 Pulse Ox 98 06/20/24 08:00 FiO2 Intake & Output 06/19/24 06/20/24 06/20/24 18:59 06:59 18:59 Intake Total 910.4 400 Output Total 1500 Balance -589.6 400 Weight 65.7 kg 66 kg Intake: IV 155 Sodium Chloride 0.9% 1, 155 000 ml In Empty Bag 1 bag @ 75 mls/hr IV .[id number] [facility] Rx#:[id number] Intake, IV Titration 25.4 Amount Clevidipine Butyrate 25 25.4 mg In Empty Bag 1 bag @ 1 MG/HR 2 mls/hr IV .Q24H [facility] Rx#:[id number] Oral 730 400 Output: Urine 1500 Other: Voiding Method Toilet Toilet Toilet # Voids 1 3 - Labs CBC & Chem 7: 06/20/24 04:45 06/20/24 04:45 Labs: Abnormal Lab Results - Last 24 Hours (Table) 06/20/24 06/20/24 Range/Units 04:45 04:45 RBC 5.66 H (3.80-5.40) m/uL Hgb 17.9 H (11.4-16.0) gm/dL Hct 54.0 H (34.0-46.0) % Chloride 111 H (98-107) mmol/L Carbon Dioxide 16 L (22-30) mmol/L BUN 27 H (7-17) mg/dL
--- NOTE | 2024-06-20 11:58 | P.DS ---
Providers Date of admission: 06/18/24 13:22 Expected date of discharge: 06/20/24 Attending physician: Gonzales Barbour MD Consults: 06/18/24 13:22 Consult Physician Urgent Consulting Provider: Kennedy Kurtz Consult Reason/Comments: nstemi Do you want consulting provider notified?: Already Contacted 06/18/24 14:49 Consult Physician Routine Consulting Provider: [facility] Consult Reason/Comments: Post Interventional patient Do you want consulting provider notified?: Already Contacted Primary care physician: Stated None Hospital Course: Patient is a 59 year old F with PMH of HTN, HLD, CAD with previous LAD stent in 2014 presented to the ED at [facility] as a transfer from [facility] for chest pain. She reports heavy history of smoking and not taking any medications. High-sensitivity troponin performed at [facility] was 152 and 199. EKG reveals sinus rhythm with deep T wave inversions in V2-V6. Of note, underwent cardiac cath at this hospital in 07/2015 revealing 70% mid LAD stenosis status post JORDY to the mid-LAD. Echo done at that time showed EF 50-55%. She was noted to be extremely hypertensive and was started on a heparin infusion for NSTEMI and nitro drip and transferred to [facility] for further evaluation. In the ED here, her vitals were BP 192/120, HR 98, T 98.2F, RR 18, 98% on RA. She was given Metoprolol 5 mg IV in the ED and evaluated by Cardiology. She underwent cardiac cath on 06/18 and underwent stenting to the LAD. Post cath, her BP remained elevated with SBP in the 200s. She was given 10 mg IV Labetolol and eventually required a Clevedipine drip hence transferred to the ICU. BP improved, weaned off Clevedipine drip on 06/19. Echo showed EF of 40- 45% with hypokinesis. 06/20 Patient was seen and examined. No complaints. Most recent BP 124/84 HR 69. CBC, BMP done today significant for RBC 5.66, Hg 17.9, Hct 54, Cl 111, bicarb 16, BUN 27. Plans for discharge home on ASA 81 mg PO QD, Crestor 40 mg PO QD, Metoprolol 50 mg PO BID, Losartan 50 mg PO QD, Aldactone 25 mg PO QD and Brilinta 90 mg PO BID. Advised medication compliance. Advised follow up with Dr. Kurtz within 1 week of discharge. General: non toxic, no distress, appears at stated age Derm: warm, dry Head: atraumatic, normocephalic, symmetric Eyes: EOMI, no lid lag, anicteric sclera Mouth: no lip lesion, mucus membranes moist Cardiovascular: S1S2 reg, no murmur Lungs: CTA bilateral, no rhonchi, no rales , no accessory muscle use Ext: no gross muscle atrophy, no edema, no contractures Neuro: no focal neuro deficits Psych: Alert, oriented, appropriate affect Discharge Diagnosis: NSTEMI Hypertensive emergency Dyslipidemia Polycythemia likely related to history of smoking Leukocytosis mildly elevated and trending down, likely reactive with no signs of active infection. Nicotine abuse This complex discharge took 35 minutes to complete. Patient Condition at Discharge: Stable Plan - Discharge Summary Discharge Rx Participant: No New Discharge Prescriptions: New Spironolactone [Aldactone] 25 mg PO DAILY #30 tab Losartan [Cozaar] 50 mg PO DAILY #30 tab Metoprolol Tartrate [Lopressor] 50 mg PO BID #60 tab Nitroglycerin Sl Tabs [Nitrostat] 0.4 mg SUBLINGUAL Q5M PRN #30 tab PRN Reason: Chest Pain Aspirin 81 mg PO DAILY #30 tab Ticagrelor [Brilinta] 90 mg PO BID #60 tab Discharge Medication List Aspirin 81 mg PO DAILY #30 tab 06/20/24 [Rx] Losartan [Cozaar] 50 mg PO DAILY #30 tab 06/20/24 [Rx] Metoprolol Tartrate [Lopressor] 50 mg PO BID #60 tab 06/20/24 [Rx] Nitroglycerin Sl Tabs [Nitrostat] 0.4 mg SUBLINGUAL Q5M PRN #30 tab 06/20/24 [Rx] Spironolactone [Aldactone] 25 mg PO DAILY #30 tab 06/20/24 [Rx] Ticagrelor [Brilinta] 90 mg PO BID #60 tab 06/20/24 [Rx] Follow up Appointment(s)/Referral(s): None,Stated [Primary Care Provider] - 1-2 days Kennedy Kurtz MD [STAFF PHYSICIAN] - 1 Week Activity/Diet/Wound Care/Special Instructions: Diet: Cardiac Discharge Disposition: HOME SELF-CARE
[2024-06-20 13:02] VITALS: BP 130/91; PULSE 75; RESP 10; TEMP 98.6
[2024-06-21] MEDS ORDERED: LOSARTAN 50 MG TAB PO SCH (09:00)
[2024-06-21] MEDS ORDERED: FAMOTIDINE 20 MG TAB PO SCH (09:00)
== END 2024-06-20 13:30 | disposition home or self-care (01) | DRG 322 ==
LOC: EC 12:47 → 3SCARD 13:22 → 2SICU 21:40
PROVIDERS: ADMIT Family Medicine; ATTEND Family Medicine
PROC: B2111ZZ Fluoroscopy of Multiple Coronary Arteries using Low Osmolar Contrast (ICD-10-PCS; principal; 2024-06-19)
PROC: 4A023N7 Measurement of Cardiac Sampling and Pressure, Left Heart, Percutaneous Approach (ICD-10-PCS; principal; 2024-06-19)
PROC: 027034Z Dilation of Coronary Artery, One Artery with Drug-eluting Intraluminal Device, Percutaneous Approach (ICD-10-PCS; 2024-06-19)
PROC: B240ZZ3 Ultrasonography of Single Coronary Artery, Intravascular (ICD-10-PCS; 2024-06-19)
DX: I21.4 Non-ST elevation (NSTEMI) myocardial infarction (principal); I16.1 Hypertensive emergency; I42.9 Cardiomyopathy, unspecified; D75.1 Secondary polycythemia; E78.00 Pure hypercholesterolemia, unspecified; I08.1 Rheumatic disorders of both mitral and tricuspid valves; F17.210 Nicotine dependence, cigarettes, uncomplicated; F41.9 Anxiety disorder, unspecified; G47.00 Insomnia, unspecified; I10 Essential (primary) hypertension; F40.240 Claustrophobia; D72.829 Elevated white blood cell count, unspecified; I25.10 Atherosclerotic heart disease of native coronary artery without angina pectoris; I25.2 Old myocardial infarction; Z79.02 Long term (current) use of antithrombotics/antiplatelets; Z79.82 Long term (current) use of aspirin; Z79.899 Other long term (current) drug therapy; Z88.8 Allergy status to other drugs, medicaments and biological substances; Z91.148 Patient's other noncompliance with medication regimen for other reason; Z91.199 Patient's noncompliance with other medical treatment and regimen due to unspecified reason
CPT/HCPCS: 80048; 80061; 83036; 83735; 84484; 85025; 85610; 92978; 93005; 93306; 93458; 96365; 96368; 96375; 99291